=== PATIENT | female | born 1960 | race Caucasian/White ===

== ENCOUNTER 2020-06-19 11:10 | Emergency (ER) | payer MEDICAID, SELFPAY ==
[2020-06-19 11:30] VITALS: BP 156/89; PULSE 87; RESP 16; TEMP 36.8; O2SAT 97; BMI 31.3
--- NOTE | 2020-06-19 11:41 | HMH.EDUTC ---
[facility] Disposition Clinical Impression: UTI (urinary tract infection) Qualifiers: Urinary tract infection type: site unspecified Hematuria presence: with hematuria Qualified Code(s): N39.0 - Urinary tract infection, site not specified Disposition: Home, Self-Care Condition on Discharge: Good Instructions: Urinary Tract Infection, DI for Urinary Tract Infection (UTI) Additional Instructions: Drink plenty of fluids. Take tylenol for pain or fever. Return if you begin to have difficulty breathing. Follow up with your regular doctor. GO TO THE ER FOR ANY WORSENING SYMPTOMS The pyridium will make your urine turn orange, this is an expected side effect. It will stain your clothes if it comes into contact with them. Prescriptions: Nitrofurantoin Monohyd/M-Cryst [Macrobid 100 mg Capsule] 100 mg PO BID 5 Days #10 cap Transmission Status: Received by [id number] Phenazopyridine HCl [Pyridium 200mg Tablet] 200 pow PO TID #6 tab Transmission Status: Received by [id number] Referrals: Kevin Mckee [Primary Care Provider] - Time of Disposition: 12:22 Medical Decision Making - Medical Records Medical records reviewed: No: I reviewed the patient's medical records. - Shashank Inquiry Pt receiving controlled substance: No Vital Signs: 06/19/20 11:30 06/19/20 12:28 Temperature 98.2 F 98.2 F Temperature Source Oral Pulse Rate 87 Pulse Rate [Right Brachial] 87 Respiratory Rate 16 16 Blood Pressure 156/89 H Blood Pressure [Right Arm] 156/89 H Blood Pressure Mean [Right Arm] 111 Blood Pressure Source [Right Arm] Automatic Cuff Blood Pressure Position [Right Arm] Sitting 02 Sat by Pulse Oximetry 97 Oxygen Delivery Method Room Air - Lab Data Lab results reviewed: Yes: I reviewed the patient's lab results. Lab Results 06/19/20 11:13: Urine Color Yellow, Urine Appearance Clear, Urine pH 5.5, Ur Specific [place] 1.025, Urine Protein 2+, Urine Glucose (UA) Negative, Urine Ketones Negative, Urine Blood Trace, Urine Nitrate Negative, Urine Bilirubin Negative, Urine Urobilinogen 0.2, Ur Leukocyte Esterase Negative Orders (Tests/Meds): ORDERS Category Date Time Status Urine Culture Stat Micro 06/19/20 12:40 Results [facility] HPI - General Stated complaint: possible UTI Time Seen by Provider: 06/19/20 11:41 - History of Present Illness Provider Complaint: She states that she has been having burning while urinating for the past 3 days. She believes that she has a uti. She denies any low back pain. - Related Data Previous Rx's Medication Instructions Recorded Nitrofurantoin Monohyd/M-Cryst 100 mg PO BID 5 Days #10 cap 06/19/20 [Macrobid 100 mg Capsule] Phenazopyridine HCl [Pyridium 200 pow PO TID #6 tab 06/19/20 200mg Tablet] Allergies Allergy/AdvReac Type Severity Reaction Status Date / Time Penicillins Allergy Verified 06/19/20 11:53 Sulfa (Sulfonamide Allergy Verified 06/19/20 11:53 Antibiotics) [facility] History - Hepatitis A Screen Attestation statement:: This patient has been screened for Hepatitis A risk factors. I have reviewed the patient's past medical history: Yes ROS Obtained: Yes All systems reviewed & no additional complaints - Constitutional Constitutional: Denies chills, Denies fever(s) - Genitourinary Female Genitourinary: Reports as per HPI - Musculoskeletal Musculoskeletal: Reports as per HPI - Integumentary/Breasts Skin/Breast: Denies redness, Denies rash, Denies wounds Physical Exam - General General appearance: alert, in no apparent distress - Head Head exam: atraumatic, normocephalic, normal inspection - Eye Eye exam: Present: normal appearance, PERRL, EOMI - ENT ENT exam: Present: normal exam, normal oropharynx, mucous membranes moist, TM's normal bilaterally, normal external ear exam - Neck Neck exam: Present: normal inspection, full ROM, trachea midline. Absent: meningismus, ly
[2020-06-19 12:22] LABS: Apearance,Urine Clear (Clear); Color,Urine Yellow (Yellow); PH,Urine 5.5 (5.0-8.5); Specific Gravity, Urine 1.025 (1.005-1.030)
[2020-06-19 12:23] LABS: Bilirubin,Urine Negative (Negative); Blood, Urine Trace (Negative); Glucose,Urine (UA) Negative (Negative); Ketones,Urine Negative (Negative); Protein,Urine 2+ (Negative); UTC Leukocyte Esterase,Urine Negative (Negative); UTC Nitrate,Urine Negative (Negative); Urobilinogen,Urine 0.2 EU/dl (0.2)
[2020-06-19 12:28] VITALS: BP 156/89; PULSE 87; RESP 16; TEMP 36.8; O2SAT 97
== END 2020-06-19 12:31 | disposition home or self-care (01) ==
PROVIDERS: Emergency Provider Nurse Practitioner Family; PCP Pediatrics
DX: N39.0 Urinary tract infection, site not specified (principal)
CPT/HCPCS: 81003; 87086; 99202; G0463

== ENCOUNTER 2020-11-03 12:21 | Observation (INO) | payer MEDICAID, SELFPAY ==
[2020-11-03] VITALS (11 sets, daily range): BP systolic 108–166; BP diastolic 70–92; PULSE 79–108; RESP 17–20; TEMP 36.6–36.8; O2SAT 94–97; BMI 41.3; BMI 37.4
--- NOTE | 2020-11-03 12:37 | CT_ITS ---
PROCEDURE: CT HEAD/BRAIN WO CON CLINICAL INDICATION: fall with headstrike, on plavix Head injury with headache/pain, contusion, abrasion or hematoma COMPARISON: No exams were available for comparison TECHNIQUE: Axial images obtained. All CT scans at the facility use one or more dose reduction, viz: automated exposure control, ma/kV adjustment per patient size (including targeted exams where dose is matched to indication, i.e. head), or iterative reconstruction technique. FINDINGS: No midline shift, mass effect, intracranial hemorrhage, hydrocephalus, or extra-axial fluid collection is evident. There are encephalomalacia changes in the left frontal lobe, left posterior cerebellar region, and anterior right cerebellar region. Prominent soft tissue swelling is present in the left frontal area consistent with hematoma in the supraorbital region.. The calvarium has an unremarkable appearance. Minimal amount fluid noted in the right mastoid sinus. Mild mucosal thickening of the maxillary and ethmoid sinuses. IMPRESSION: 1. No acute intracranial findings. 2. Encephalomalacia changes in the left frontal lobe and bilateral cerebellar region 3. Left frontal scalp hematoma Dictated by: Anish Candelario MD 11/03/2020 13:10 Anish Candelario MD in [place] 11/03/2020 13:10
--- NOTE | 2020-11-03 12:38 | XR_ITS ---
PROCEDURE: XR KNEE RT 2V CLINICAL INDICATION: fall Pain COMPARISON: No exams were available for comparison FINDINGS: There are minimal osteoarthritic changes of the medial and lateral compartment. No acute fracture or dislocation. Skin defect is present in the pre patellar region IMPRESSION: No acute fracture.. Dictated by: Anish Candelario MD 11/03/2020 13:29 Anish Candelario MD in [place] 11/03/2020 13:29
--- NOTE | 2020-11-03 12:38 | XR_ITS ---
PROCEDURE: XR SHOULDER LT MIN 2V CLINICAL INDICATION: fall Pain COMPARISON: No exams were available for comparison FINDINGS: There is a comminuted fracture involving the neck and proximal shaft of the humerus. There is 1 cm medial displacement of the main distal fracture fragment. There is an avulsion fracture at the greater tuberosity region slightly displaced. The humeral head appears located. The AC joint has an unremarkable appearance. IMPRESSION: Comminuted and displaced fracture of the proximal humerus at the humeral neck and extending into the proximal shaft Dictated by: Anish Candelario MD 11/03/2020 13:28 Anish Candelario MD in [place] 11/03/2020 13:28
--- NOTE | 2020-11-03 12:38 | XR_ITS ---
PROCEDURE: XR ELBOW LT 2V CLINICAL INDICATION: fall Pain COMPARISON: No exams were available for comparison FINDINGS: The exam is limited as the elbow is not able to be extended secondary to patient's severe comminuted proximal humerus fracture. On the AP view there is a lucency along the coronoid process which could be due to nondisplaced fracture but could also be old. Follow-up study suggested when patient is able to extend the elbow. IMPRESSION: Very limited study. Possible small avulsion fracture the coronoid process. Follow-up suggested Dictated by: Anish Candelario MD 11/03/2020 13:33 Anish Candelario MD in [place] 11/03/2020 13:33
--- NOTE | 2020-11-03 12:45 | HMH.EDFALL ---
ED Disposition Clinical Impression: Laceration of lower extremity, Left humeral fracture Disposition: Admitted As Inpatient Condition on Discharge: Good - Critical Care Critical Care Time: No Attestation: On , the high probability of a clinically significant, sudden or life threatening deterioration of the following system(s) required my full and direct attention, intervention and personal management. The time I documented below is in addition to time spent performing reported procedures but includes the following listed in this critical care notation. Medical Decision Making - Medical Records MR Comment: Muted and displaced fracture of the rectum left humerus extending from the humerus neck to the upper shaft of the humerus. He was given pain medication. - Shashank Inquiry Pt receiving controlled substance: No Shashank was queried for this patient: No (urgent need for pain. fractured arm) Vital Signs: 11/03/20 12:30 11/03/20 13:19 11/03/20 13:30 Temperature 98.3 F Temperature Source Oral Pulse Rate 107 H 106 H Pulse Rate [Right] 103 H Respiratory Rate 20 Blood Pressure Blood Pressure [Right Arm] 157/85 H Blood Pressure Mean Blood Pressure Mean [Right Arm] 109 Blood Pressure Source [Right Arm] Automatic Cuff Blood Pressure Position [Right Arm] Sitting 02 Sat by Pulse Oximetry 96 95 97 Oxygen Delivery Method Room Air 11/03/20 13:45 11/03/20 14:00 11/03/20 14:23 Temperature Temperature Source Pulse Rate 105 H 102 H 95 H Pulse Rate [Right] Respiratory Rate Blood Pressure Blood Pressure [Right Arm] Blood Pressure Mean Blood Pressure Mean [Right Arm] Blood Pressure Source [Right Arm] Blood Pressure Position [Right Arm] 02 Sat by Pulse Oximetry 94 L 96 94 L Oxygen Delivery Method 11/03/20 14:26 11/03/20 16:27 11/03/20 17:03 Temperature 97.8 F Temperature Source Oral Pulse Rate 97 H 94 H 99 H Pulse Rate [Right] Respiratory Rate 20 20 Blood Pressure 135/78 166/79 H 108/70 L Blood Pressure [Right Arm] Blood Pressure Mean 87 Blood Pressure Mean [Right Arm] Blood Pressure Source [Right Arm] Blood Pressure Position [Right Arm] 02 Sat by Pulse Oximetry 95 95 Oxygen Delivery Method Room Air Room Air 11/03/20 17:21 Temperature 97.9 F Temperature Source Oral Pulse Rate Pulse Rate [Right] 79 Respiratory Rate 17 Blood Pressure Blood Pressure [Right Arm] 114/92 H Blood Pressure Mean Blood Pressure Mean [Right Arm] 99 Blood Pressure Source [Right Arm] Automatic Cuff Blood Pressure Position [Right Arm] Supine 02 Sat by Pulse Oximetry 95 Oxygen Delivery Method Room Air - Lab Data Lab Results 11/03/20 12:52: WBC 9.5, RBC 4.23, Hgb 12.3, Hct 36.7 L, MCV 86.8, MCH 29.1, MCHC 33.5, RDW 13.7, Plt Count 223, MPV 8.7, Neut % (Auto) 78.6, Lymph % (Auto) 11.9, [place] % (Auto) 5.9, Eos % (Auto) 2.8, Baso % (Auto) 0.7, Neut # (Auto) 7.5, Lymph # (Auto) 1.1, [place] # (Auto) 0.6, Eos # (Auto) 0.3, Baso # (Auto) 0.1 11/03/20 12:52: Sodium 137, Potassium 5.1, Chloride 106, Carbon Dioxide 22, Anion Gap 14.1, BUN 25 H, Creatinine 0.80, Estimated Creat Clear 57, Estimated GFR 73, Est GFR ( Amer) 88, Glucose 237 H, Calcium 8.3 L, Total Bilirubin 0.5, AST 47 H, ALT 50, Alkaline Phosphatase 103, Total Protein 7.0, Albumin 3.8, Globulin 3.2, Albumin/Globulin Ratio 1.2 11/03/20 16:00: SARS-CoV-2 (PCR) Not detected, Influenza A Untype (PCR) Not detected, Influenza Type B (PCR) Not detected Result diagrams: 11/04/20 08:28 11/04/20 08:28 Orders (Tests/Meds): ED MEDICATIONS Discontinued Medications Generic Name Dose Route Start Last Admin Trade Name Freq PRN Reason Stop Dose Admin Hydrocodone Bitart/Acetaminophen 1 tab 11/03/20 15:54 11/03/20 15:55 Apap/Hydrocodone 325mg/7.5mg Tab PO 11/03/20 15:55 1 tab ONCE ONE Administration Amitriptyline HCl 50 mg 11/03/20 21:00 11/03/20 20:10 Amitriptyline 50mg Tablet P
--- NOTE | 2020-11-03 12:56 | PC.NURSE ---
Pt to CT & XR via wheelchair at this time.
--- NOTE | 2020-11-03 13:30 | PC.NURSE ---
at bedside suturing right knee.
--- NOTE | 2020-11-03 14:16 | CT_ITS ---
PROCEDURE: CT SHOULDER LT WO CON CLINICAL HISTORY: injury Fracture evaluation COMPARISON: No exams were available for comparison TECHNIQUE: Axial images obtained with sagittal and coronal reformats. All CT scans at the facility use one or more dose reduction, viz: automated exposure control, ma/kV adjustment per patient size (including targeted exams where dose is matched to indication, i.e. head), or iterative reconstruction technique. FINDINGS: The humeral head is located. There is comminuted fracture involving the proximal left humerus at the humeral neck with extension into the proximal to mid shaft of the left proximal humerus. There is avulsion the inferior aspect of the greater tuberosity. There is distraction of the main fracture fragments by approximately 16 mm with anterior displacement of the distal fracture fragment by 1 cm. No other significant anomalies are evident. The scapula and glenoid fossa has an unremarkable appearance. IMPRESSION: Comminuted and displaced left proximal humeral fracture beginning at the humeral neck and extending into the proximal and midshaft of the humerus Dictated by: Anish Candelario MD 11/03/2020 15:05 Anish Candelario MD in [place] 11/03/2020 15:05
[2020-11-03 14:30] LABS: Alanine Aminotransferase 50 U/L (12-78); Albumin Level 3.8 g/dl (3.5-5.0); Albumin/Globulin Ratio 1.2 (1.1-1.8); Alkaline Phosphatase 103 U/L (38-126); Anion Gap 14.1 mEq/L (5-15); Aspartate Amino Transferase 47 U/L (14-36); Bilirubin,Total 0.5 mg/dl (0.2-1.3); Blood Urea Nitrogen 25 mg/dl (7-17); Calcium 8.3 mg/dl (8.4-10.2); Carbon Dioxide 22 mmol/L (22.0-30.0); Chloride 106 mmol/L (98-107); Creatinine Clearance Estimated 57 mL/min (50-200); Estimated Glomerular Filt Rate 73 ml/min (>60); GFR (African American) 88 ML/MIN (>60); Globulin 3.2 g/dL (1.3-3.2); Glucose 237 mg/dl (74-100); Potassium 5.1 mmoL/L (3.5-5.1); Sodium 137 mmol/L (136-145)
--- NOTE | 2020-11-03 14:35 | PC.NURSE ---
Knee immobilizer applied to right, shoulder immobilizer applied to left.
[2020-11-03 14:48] LABS: Basophils # 0.1 K/mm3 (0-0.2); Basophils % 0.7 % (0.1-2.0); Eosinophils # 0.3 K/mm3 (0.0-0.4); Eosinophils % 2.8 % (0.1-12.0); Hematocrit 36.7 % (37.0-47.0); Hemoglobin 12.3 g/dL (12.2-16.2); Lymphocytes # 1.1 K/mm3 (0.7-4.5); Lymphocytes % 11.9 % (10-50); Mean Corpuscular HGB Conc 33.5 g/dL (31.8-35.4); Mean Corpuscular Hemoglobin 29.1 pg (27.0-31.2); Mean Corpuscular Volume 86.8 fl (81-99); Mean Platelet Volume 8.7 fl (7.4-10.4); Monocytes # 0.6 K/mm3 (0.1-1.0); Monocytes % 5.9 % (1.7-9.3); Neutrophils # 7.5 K/mm3 (1.8-7.8); Neutrophils % 78.6 % (37.0-80.0); Platelet Count 223 K/mm3 (142-424); Red Blood Count 4.23 M/mm3 (4.20-5.40); Red Cell Distribution Width 13.7 % (11.5-17.5); White Blood Count 9.5 K/mm3 (4.8-10.8)
--- NOTE | 2020-11-03 15:23 | PC.NURSE ---
waiting direct support professional caregiver back from Dr. Wharton's office
[2020-11-03 16:12] LABS: Coronavirus 19, PCR Not Detected (NotDetected); Influenza A, PCR Not Detected (NotDetected); Influenza B, PCR Not Detected (NotDetected)
--- NOTE | 2020-11-03 16:12 | PC.NURSE ---
per Dr. Rosales okay to admit pt to him, Dr. Wharton is going to consult on pt with possible surgery tomorrow. per IrmaRN
--- NOTE | 2020-11-03 16:14 | PC.NURSE ---
notified house carpenter of admission
--- NOTE | 2020-11-03 17:26 | HMH.HP ---
*Admission Date: 11/03/20 *Chief complaint: fall with left arm pain and right lower leg laceration *History of present illness: Ms. Elizalde is a 60-year-old female with a history of hypertension, hyperlipidemia, CAD, diabetes, COPD, and history of CVA with some right foot weakness who fell at home and sustained a laceration to the front of her right knee, hit her head on the left side, and hit her left shoulder and arm. She had severe pain in the arm and was brought to the emergency room for further evaluation and treatment. She received 13 stitches to the laceration on her knee and did have a left humerus fracture. Her left arm was placed in a sling and she was admitted with an orthopedic consult. She did not lose consciousness and states she does have a mild headache at this time but denies any dizziness. [facility] History I have reviewed the patient's past medical history: Yes Medical History: Reports:: Atherosclerotic Heart Disease, Chronic Obstructive Pulmonary Disease (COPD), Coronary Artery Disease, Cerebrovascular Accident, Diabetes Mellitus Type 2, Hyperlipidemia, Hypertension, Myocardial Infarction *Have you ever received a pneumonia vaccine?: No *Have you received a flu vaccine this season?: No Other Surgeries: Yes: Hysterectomy-Total, Other (back surgery) - *Social History Smoking Status: Current every day smoker Tobacco Type: cigarettes # Packs/Day (cigarettes): 1 Alcohol Intake: former *Occupational Status:: other *Travel in the last 8 weeks: None Family Hx:: Cancer, Coronary Artery Disease, Diabetes, Heart Attack, Hyperlipidemia, Hypertension, Stroke Review of Systems - Constitutional Denies body ache(s), Denies chills, Denies fever(s) - Eyes Denies blurry vision, Denies double vision - ENT Denies nasal congestion, Denies sore throat - *Cardiovascular Denies chest pain, Denies shortness of breath - *Respiratory Denies chest congestion, Denies cough - *Gastrointestinal Denies abdominal pain, Denies loose stools, Denies nausea, Denies vomiting - *Genitourinary Denies difficulty urinating, Denies painful urination - *Musculoskeletal Reports joint pain (left arm, right knee), Reports back pain - *Neurologic Reports headache(s), Denies dizziness, Denies weakness Meds Home Medications Medication Instructions Recorded Confirmed Type Unobtainable 11/03/20 11/03/20 History Allergies Allergy/AdvReac Type Severity Reaction Status Date / Time Penicillins Allergy Verified 06/19/20 11:53 Sulfa (Sulfonamide Allergy Verified 06/19/20 11:53 Antibiotics) Exam Vital signs and Labs for Last 24 Hours: Temp Pulse Resp BP Pulse Ox 97.9 F 79 17 114/92 H 95 11/03/20 17:21 11/03/20 17:21 11/03/20 17:21 11/03/20 17:21 11/03/20 17:21 Laboratory Results - last 24 hr 11/03/20 12:52: WBC 9.5, RBC 4.23, Hgb 12.3, Hct 36.7 L, MCV 86.8, MCH 29.1, MCHC 33.5, RDW 13.7, Plt Count 223, MPV 8.7, Neut % (Auto) 78.6, Lymph % (Auto) 11.9, [place] % (Auto) 5.9, Eos % (Auto) 2.8, Baso % (Auto) 0.7, Neut # (Auto) 7.5, Lymph # (Auto) 1.1, [place] # (Auto) 0.6, Eos # (Auto) 0.3, Baso # (Auto) 0.1 11/03/20 12:52: Sodium 137, Potassium 5.1, Chloride 106, Carbon Dioxide 22, Anion Gap 14.1, BUN 25 H, Creatinine 0.80, Estimated Creat Clear 57, Estimated GFR 73, Est GFR ( Amer) 88, Glucose 237 H, Calcium 8.3 L, Total Bilirubin 0.5, AST 47 H, ALT 50, Alkaline Phosphatase 103, Total Protein 7.0, Albumin 3.8, Globulin 3.2, Albumin/Globulin Ratio 1.2 11/03/20 16:00: SARS-CoV-2 (PCR) Not detected, Influenza A Untype (PCR) Not detected, Influenza Type B (PCR) Not detected I & O for Last 24 hours: Intake & Output 11/01/20 11/02/20 11/03/20 11/04/20 11:59 11:59 11:59 11:59 Weight 239 lb 3 oz - Constitutional no acute distress - *Routine HEENT Exam Head: Present: normocephalic Eye: Present: EOMI, PERRL ENT: Present: mucous membranes moist - *Routine Neck Exam Present: supple. Absent: lymph
--- NOTE | 2020-11-03 18:04 | HMH.ORTHOCON ---
*Admission Date: 11/03/20 *Reason for consult:: Proximal humerus fracture, left *History of present illness: Ms. Elizalde is a 60-year-old [id number] female with a history of hypertension, hyperlipidemia, CAD, diabetes, COPD, and history of CVA x 2 with some residual right lower extremity weakness, tobacco abuse and history of MRSA is admitted to hospital via emergency department. She states that she fell at home and sustained a laceration to the front of her right knee, hit her head on the left side, and hit her left shoulder and arm. She had severe pain in the arm and was brought to the emergency room for further evaluation and treatment. Evaluation in the ER confirmed a comminuted proximal humerus fracture on the left side-the arm is placed in a sling and swath mobilization. The laceration was sutured in the ER and right lower extremity placed in a knee immobilizer. No history of any distal tingling or numbness. She did not lose consciousness and states she does have a mild headache at this time but denies any dizziness. According to the ER physician, patient is being admitted to hospital for social reasons. Patient states that she lives with her family and normally walks without any walking aids. She reports having frequent falls at home. She states she had CVA about a year ago and was in coma for some time. [facility] History I have reviewed the patient's past medical history: Yes Medical History: Reports:: Atherosclerotic Heart Disease, Congestive Heart Failure, Chronic Obstructive Pulmonary Disease (COPD), Coronary Artery Disease, Cerebrovascular Accident, Diabetes Mellitus Type 2, Hyperlipidemia, Hypertension, MRSA, Myocardial Infarction Denies:: Cancer, Diabetes Mellitus Type 1 *Have you ever received a pneumonia vaccine?: Yes *Have you received a flu vaccine this season?: No Other Surgeries: Yes: Hysterectomy-Total, Other (back surgery) - *Social History Smoking Status: Current every day smoker Tobacco Type: cigarettes # Packs/Day (cigarettes): 1 Alcohol Intake: never *Occupational Status:: disabled *Travel in the last 8 weeks: None Family Hx:: Cancer, Coronary Artery Disease, Diabetes, Heart Attack, Hyperlipidemia, Hypertension, Stroke Review of Systems - Review of Systems Review of systems:: pertinent systems reviewed and negative unless documented below - Constitutional Denies chills, Denies fever(s) - Eyes Denies change in vision - ENT Denies abnormal hearing - *Cardiovascular Denies chest pain, Denies shortness of breath - *Respiratory Denies chest congestion, Denies cough - *Gastrointestinal Denies abdominal pain - *Musculoskeletal Reports abnormal walking, Reports joint pain, Reports limited joint movement - *Neurologic Reports headache(s), Denies tingling/numbness/burning sensations, Denies dizziness, Denies weakness - Endocrine Denies cold intolerance, Denies heat intolerance - Hematologic/Lymphatic Reports easy bruising Meds Home Medications Medication Instructions Recorded Confirmed Type Unobtainable 11/03/20 11/03/20 History Allergies Allergy/AdvReac Type Severity Reaction Status Date / Time Penicillins Allergy Verified 06/19/20 11:53 Sulfa (Sulfonamide Allergy Verified 06/19/20 11:53 Antibiotics) Exam Vital signs and Labs for Last 24 Hours: Temp Pulse Resp BP Pulse Ox 97.9 F 79 17 114/92 H 95 11/03/20 17:21 11/03/20 17:21 11/03/20 17:21 11/03/20 17:21 11/03/20 17:21 Laboratory Results - last 24 hr 11/03/20 12:52: WBC 9.5, RBC 4.23, Hgb 12.3, Hct 36.7 L, MCV 86.8, MCH 29.1, MCHC 33.5, RDW 13.7, Plt Count 223, MPV 8.7, Neut % (Auto) 78.6, Lymph % (Auto) 11.9, [place] % (Auto) 5.9, Eos % (Auto) 2.8, Baso % (Auto) 0.7, Neut # (Auto) 7.5, Lymph # (Auto) 1.1, [place] # (Auto) 0.6, Eos # (Auto) 0.3, Baso # (Auto) 0.1 11/03/20 12:52: Sodium 137, Potassium 5.1, Chloride 106, Carbon Dioxide 22, Anion Gap 14.1, BUN 25 H, Creatinine 0.80, Estimated Creat Cl
--- NOTE | 2020-11-03 18:50 | P.PN_ITS ---
Internal Medicine - PN: Subj *Date: 11/03/20 *Time: 18:50 Interval history: See H&P and addendum. Exam Vital signs and Labs for Last 24 Hours: Temp Pulse Resp BP Pulse Ox 97.9 F 79 17 114/92 H 95 11/03/20 17:21 11/03/20 17:21 11/03/20 17:21 11/03/20 17:21 11/03/20 17:21 Laboratory Results - last 24 hr 11/03/20 12:52: WBC 9.5, RBC 4.23, Hgb 12.3, Hct 36.7 L, MCV 86.8, MCH 29.1, MCHC 33.5, RDW 13.7, Plt Count 223, MPV 8.7, Neut % (Auto) 78.6, Lymph % (Auto) 11.9, [place] % (Auto) 5.9, Eos % (Auto) 2.8, Baso % (Auto) 0.7, Neut # (Auto) 7.5, Lymph # (Auto) 1.1, [place] # (Auto) 0.6, Eos # (Auto) 0.3, Baso # (Auto) 0.1 11/03/20 12:52: Sodium 137, Potassium 5.1, Chloride 106, Carbon Dioxide 22, Anion Gap 14.1, BUN 25 H, Creatinine 0.80, Estimated Creat Clear 57, Estimated GFR 73, Est GFR ( Amer) 88, Glucose 237 H, Calcium 8.3 L, Total Bilirubin 0.5, AST 47 H, ALT 50, Alkaline Phosphatase 103, Total Protein 7.0, Albumin 3.8, Globulin 3.2, Albumin/Globulin Ratio 1.2 11/03/20 16:00: SARS-CoV-2 (PCR) Not detected, Influenza A Untype (PCR) Not detected, Influenza Type B (PCR) Not detected I & O for Last 24 hours: Intake & Output 11/01/20 11/02/20 11/03/20 11/04/20 11:59 11:59 11:59 11:59 Output Total 50 / 50 Balance -50 / -50 Weight 239 lb 3 oz Assessment and Plan (1) Left humeral fracture Status: Acute Category: Medical Code(s): S42.302A - Unspecified fracture of shaft of humerus, left arm, initial encounter for closed fracture (2) Laceration of lower extremity Status: Acute Category: Medical Code(s): S81.819A - Laceration without foreign body, unspecified lower leg, initial encounter (3) Contusion of forehead Status: Acute Category: Medical Code(s): S00.83XA - Contusion of other part of head, initial encounter (4) Contusion of left knee Status: Acute Category: Medical Code(s): S80.02XA - Contusion of left knee, initial encounter (5) Type 2 diabetes mellitus Status: Chronic Category: Medical Code(s): E11.9 - Type 2 diabetes mellitus without complications (6) Hypertension Status: Chronic Category: Medical Code(s): I10 - Essential (primary) hypertension (7) Hyperlipidemia Status: Chronic Category: Medical Code(s): E78.5 - Hyperlipidemia, unspecified (8) History of CVA (cerebrovascular accident) Status: Chronic Category: Medical Code(s): Z86.73 - Personal history of transient ischemic attack (TIA), and cerebral infarction without residual deficits (9) History of [place] (myocardial infarction) Status: Chronic Category: Medical Code(s): I25.2 - Old myocardial infarction (10) COPD (chronic obstructive pulmonary disease) Status: Chronic Category: Medical Code(s): J44.9 - Chronic obstructive pulmonary disease, unspecified (11) Depression Status: Acute Category: Medical Code(s): F32.9 - Major depressive disorder, single episode, unspecified (12) Restless legs syndrome Status: Acute Category: Medical Code(s): G25.81 - Restless legs syndrome
--- NOTE | 2020-11-03 18:50 | PC.NURSE ---
Pt is alert and oriented and able to make needs known. RR even and unlabored. This RN did request meds from ED and diet order. Diabetic diet was placed. Also made YAMILET Mckeon aware orders were needed. Dr. Rosales is here now and rounding on pt. Dr. Wharton has also already came to floor and rounded- see his note. This RN did ask for med list, pt is unsure of what meds she takes and is going to call with list. This RN has also informed pt of need for home meds. Verbalizes understanding. CB in reach. Immobilizer is in place to R leg and L shoulder. Pt did void small amt. States her last bm was early this am. Bed safety is on for safety of pt, educated pt not to attempt to get out of bed independently.
[2020-11-04 03:43] VITALS: BP 104/51; PULSE 105; RESP 20; TEMP 36.6; O2SAT 96
--- NOTE | 2020-11-04 03:59 | PC.NURSE ---
A&O x4, pt has not slept this shift. Has c/o pain in leg, morphine given per mar with desired effects. Immobilizer on right knee, sutures in place. Sling on left arm. Lungs CTA, pt requested to be on 2L NC because she felt SOA. bowel sounds x4, abd soft and nontender. IV patent, SL. VSS, call light in reach, no concerns at this time.
[2020-11-04 04:57] VITALS: BMI 38.0
[2020-11-04 07:48] VITALS: BP 126/96; PULSE 106; RESP 18; TEMP 36.7; O2SAT 94
--- NOTE | 2020-11-04 08:13 | P.CONPHA_ITS ---
[facility] Pharmacy VTE Monitoring - Patient Demographics Admission date: 11/04/20 Report Date: 11/04/20 Time: 08:13 Allergies/Adverse Reactions: Patient Allergies Penicillins Allergy (Verified 06/19/20 11:53) Sulfa (Sulfonamide Antibiotics) Allergy (Verified 06/19/20 11:53) Height: 1.7 m Weight: 109.996 kg Patient Problems: Current Active Problems Laceration of lower extremity (Acute) Left humeral fracture (Acute) Hypertension (Chronic) Hyperlipidemia (Chronic) Type 2 diabetes mellitus (Chronic) History of CVA (cerebrovascular accident) (Chronic) History of [place] (myocardial infarction) (Chronic) COPD (chronic obstructive pulmonary disease) (Chronic) Contusion of forehead (Acute) Contusion of left knee (Acute) Depression (Acute) Restless legs syndrome (Acute) - VTE Risk Labs: VTE Related Lab Results Hgb 12.3 g/dL (12.2-16.2) 11/03/20 12:52 Hct 36.7 % (37.0-47.0) L 11/03/20 12:52 Plt Count 223 K/mm3 (142-424) 11/03/20 12:52 BUN 25 mg/dl (7-17) H 11/03/20 12:52 Creatinine 0.80 mg/dl (0.52-1.04) 11/03/20 12:52 Estimated Creat Clear 57 mL/min (50-200) 11/03/20 12:52 Clinical Trial Participant: No - Prophylaxis VTE Prophylaxis Ordered?: Yes Types of VTE Prophylaxis: TEDS Knee High
--- NOTE | 2020-11-04 08:26 | HMH.PHAINT ---
MEDICATION RECONCILIATION COMPLETED ON PATIENT USING EXTERNAL PHARMACY FILL HX
--- NOTE | 2020-11-04 08:41 | HMH.ACPN2 ---
Internal Medicine - PN: Subj *Date: 11/04/20 *Time: 08:41 Interval history: Patient states she had a rough night. She said she had severe pain in her arm and the nursing staff would not bring her pain medication. Dr. Wharton did see the patient in consultation and did not feel she would need surgery due to her significant medical/cardiac comorbidities. He recommended continuation of conservative management with a sling and swath immobilization. He felt she can mobilize weightbearing as tolerated on the right lower extremity has her laceration had already been sutured. He wanted to follow-up with her in 1 week. She is also requesting a nicotine patch today. Exam Vital signs and Labs for Last 24 Hours: Temp Pulse Resp BP Pulse Ox 98.1 F 106 H 18 126/96 H 94 L 11/04/20 07:48 11/04/20 07:48 11/04/20 07:48 11/04/20 07:48 11/04/20 07:48 Laboratory Results - last 24 hr 11/03/20 12:52: WBC 9.5, RBC 4.23, Hgb 12.3, Hct 36.7 L, MCV 86.8, MCH 29.1, MCHC 33.5, RDW 13.7, Plt Count 223, MPV 8.7, Neut % (Auto) 78.6, Lymph % (Auto) 11.9, Mckinley % (Auto) 5.9, Eos % (Auto) 2.8, Baso % (Auto) 0.7, Neut # (Auto) 7.5, Lymph # (Auto) 1.1, Mckinley # (Auto) 0.6, Eos # (Auto) 0.3, Baso # (Auto) 0.1 11/03/20 12:52: Sodium 137, Potassium 5.1, Chloride 106, Carbon Dioxide 22, Anion Gap 14.1, BUN 25 H, Creatinine 0.80, Estimated Creat Clear 57, Estimated GFR 73, Est GFR ( Amer) 88, Glucose 237 H, Calcium 8.3 L, Total Bilirubin 0.5, AST 47 H, ALT 50, Alkaline Phosphatase 103, Total Protein 7.0, Albumin 3.8, Globulin 3.2, Albumin/Globulin Ratio 1.2 11/03/20 16:00: SARS-CoV-2 (PCR) Not detected, Influenza A Untype (PCR) Not detected, Influenza Type B (PCR) Not detected I & O for Last 24 hours: Intake & Output 11/01/20 11/02/20 11/03/20 11/04/20 11:59 11:59 11:59 11:59 Intake Total 0 / 0 Output Total 250 / 250 Balance -250 / -250 Weight 242 lb 8 oz - Constitutional no acute distress - *Routine Respiratory Exam Present: wheezes - *Routine Cardiovascular Exam Present: RRR - *Routine Abdominal Exam Present: soft, normoactive bowel sounds. Absent: tenderness - *Routine Extremities Exam Present: edema. Absent: cyanosis, clubbing Comments: Right leg in an immobilizer, left shoulder in a sling - *Routine Skin Exam Present: warm. Absent: rash - *Routine Neurological Exam Present: alert, oriented X3 Assessment and Plan (1) Left humeral fracture Status: Acute Category: Medical Code(s): S42.302A - Unspecified fracture of shaft of humerus, left arm, initial encounter for closed fracture (2) Laceration of lower extremity Status: Acute Category: Medical Code(s): S81.819A - Laceration without foreign body, unspecified lower leg, initial encounter (3) Contusion of forehead Status: Acute Category: Medical Code(s): S00.83XA - Contusion of other part of head, initial encounter (4) Contusion of left knee Status: Acute Category: Medical Code(s): S80.02XA - Contusion of left knee, initial encounter (5) Type 2 diabetes mellitus Status: Chronic Category: Medical Code(s): E11.9 - Type 2 diabetes mellitus without complications (6) Hypertension Status: Chronic Category: Medical Code(s): I10 - Essential (primary) hypertension (7) Hyperlipidemia Status: Chronic Category: Medical Code(s): E78.5 - Hyperlipidemia, unspecified (8) History of CVA (cerebrovascular accident) Status: Chronic Category: Medical Code(s): Z86.73 - Personal history of transient ischemic attack (TIA), and cerebral infarction without residual deficits (9) History of VA (myocardial infarction) Status: Chronic Category: Medical Code(s): I25.2 - Old myocardial infarction (10) COPD (chronic obstructive pulmonary disease) Status: Chronic Category: Medical Code(s): J44.9 - Chronic obstructive pulmonary disease, unspecified (11) Depression Status: Acute Category: Medical Code(s):
[2020-11-04 09:06] LABS: Basophils % 0.4 % (0.1-2.0); Eosinophils # 0.3 K/mm3 (0.0-0.4); Eosinophils % 3.2 % (0.1-12.0); Hematocrit 35.2 % (37.0-47.0); Hemoglobin 11.6 g/dL (12.2-16.2); Lymphocytes # 1.6 K/mm3 (0.7-4.5); Lymphocytes % 16.3 % (10-50); Mean Corpuscular HGB Conc 32.9 g/dL (31.8-35.4); Mean Corpuscular Volume 88.2 fl (81-99); Mean Platelet Volume 8.5 fl (7.4-10.4); Monocytes # 0.7 K/mm3 (0.1-1.0); Monocytes % 7.1 % (1.7-9.3); Neutrophils # 7.2 K/mm3 (1.8-7.8); Neutrophils % 72.9 % (37.0-80.0); Platelet Count 205 K/mm3 (142-424); Red Cell Distribution Width 13.9 % (11.5-17.5); White Blood Count 9.9 K/mm3 (4.8-10.8)
[2020-11-04 09:08] LABS: Chloride 104 mmol/L (98-107)
[2020-11-04 09:09] LABS: Potassium 4.7 mmoL/L (3.5-5.1); Sodium 133 mmol/L (136-145)
[2020-11-04 09:12] LABS: Anion Gap 12.7 mEq/L (5-15); Blood Urea Nitrogen 21 mg/dl (7-17); Calcium 8.2 mg/dl (8.4-10.2); Carbon Dioxide 21 mmol/L (22.0-30.0); Creatinine Clearance Estimated 103 mL/min (50-200); Estimated Glomerular Filt Rate 73 ml/min (>60); GFR (African American) 88 ML/MIN (>60); Glucose 204 mg/dl (74-100)
--- NOTE | 2020-11-04 10:13 | PC.NURSE ---
Addendum entered by Adam Hu RN 11/04/20 10:27: Rolling walker is needed, rather than a cane for ambulation r/t gait and mobility issues. Original Note: Pt will need a rolling walker and a bedside commode r/t gait and mobility issues and distance to restroom. Called dietary for diet to be brought up. Also, called for nausea med request. Pt is going to be d/cd.
--- NOTE | 2020-11-04 10:31 | SW/DCPLANNER ---
Addendum entered by Lakisha Mckee 11/04/20 11:37: Dunia with [employer] has confirmed that DME will be delivered to patients room today. Original Note: I spoke with this patient this morning regarding discharge plans: patients was present at time of my visit. Patient stated that her plan was to return home with her at this time. I discussed options of home health vs placement and patient has refused both services. Patient stated that she would rather follow up with her family MD (Dr Mckee) prior to starting any services. Patient did state that she will need a rolling walker/bedside commode at home and prefer this be ordered thru [facility]. I have faxed patient information/order to [facility] and I will follow up once reviewed. Patients stated that he felt that patient will be safe to discharge home and will have / supervision. Patient will discharge home later today.
--- NOTE | 2020-11-05 15:46 | HMH.DCSUM ---
General - General Admission date:: 11/03/20 Discharge date: 11/04/20 HPI HPI: Ms. Elizalde is a 60-year-old female with a history of hypertension, hyperlipidemia, CAD, diabetes, COPD, and history of CVA with some right foot weakness who fell at home and sustained a laceration to the front of her right knee, hit her head on the left side, and hit her left shoulder and arm. She had severe pain in the arm and was brought to the emergency room for further evaluation and treatment. She received 13 stitches to the laceration on her knee and did have a left humerus fracture. Her left arm was placed in a sling and she was admitted with an orthopedic consult. She did not lose consciousness and states she does have a mild headache at this time but denies any dizziness. Hospital Course Hospital Course: The patient was started on morphine for pain and Dr. Wharton was consulted due to humerus fracture. Dr. Wharton did see the patient in consultation and did not feel surgery would be a matta option due to her significant medical/cardiac comorbidities. He recommended continuation of conservative management along with a sling and swath immobilization. He also felt she could mobilize weightbearing as tolerated on the right lower extremity as her laceration had already been sutured. He wanted to follow-up with her in his office in a week. The patient was stable to be discharged home and will need home health follow-up. She will also need to follow-up with her primary care physician and will eventually need physical therapy. Dr. Rosales wrote her some pain medication. Objective Vital signs: Temp Pulse Resp BP Pulse Ox 98.1 F 106 H 18 126/96 H 94 L 11/04/20 07:48 11/04/20 07:48 11/04/20 07:48 11/04/20 07:48 11/04/20 07:48 Narrative: - Constitutional no acute distress - *Routine HEENT Exam Head: Present: normocephalic Eye: Present: EOMI, PERRL ENT: Present: mucous membranes moist - *Routine Neck Exam Present: supple. Absent: lymphadenopathy - *Routine Respiratory Exam Present: decreased breath sounds, CTA bilaterally - *Routine Cardiovascular Exam Present: RRR - *Routine Abdominal Exam Present: soft, normoactive bowel sounds. Absent: tenderness - *Routine Rectal Exam Rectal:: deferred - *Routine Genitalia Exam Genitalia:: deferred - *Routine Extremities Exam Present: edema (right knee). Absent: cyanosis, clubbing Comments: left arm tender from shoulder down to elbow, in a sling - *Routine Skin Exam Comments: right knee with 13 simple interrupted sutures, above left eye there is a hematoma that is tender - *Routine Neurological Exam Present: alert, oriented X3, CN II-XII intact DS: Diagnosis - Discharge Diagnosis (1) Left humeral fracture Status: Acute (2) Laceration of lower extremity Status: Acute (3) Contusion of forehead Status: Acute (4) Contusion of left knee Status: Acute (5) Type 2 diabetes mellitus Status: Chronic (6) Hypertension Status: Chronic (7) Hyperlipidemia Status: Chronic (8) History of CVA (cerebrovascular accident) Status: Chronic (9) History of IA (myocardial infarction) Status: Chronic (10) COPD (chronic obstructive pulmonary disease) Status: Chronic (11) Depression Status: Acute (12) Restless legs syndrome Status: Acute Discharge Plan - Patient Discharge Instructions ACTIVITY: Ambulate as tolerated DIET: low fat, low cholesterol Additional Instructions: f/u with pcp Patient Instructions: Depression and Chronic Illness, High Blood Pressure (Hypertension) (Alternative Therapy), DI for Chronic Obstructive Pulmonary Disease, DI for Humeral Fracture - Follow up Plan Follow up with: Kevin Mckee [Primary Care Provider] - 11/11/20 1:20 pm Unknown provider or service follow up:: 11/04/20 10:[address] Wharton wants follow-up. Disposition: Home Health Service Condition at dis
== END 2020-11-04 13:40 | disposition home health service (06) ==
LOC: ER 16:27 → 2ND 17:08
PROVIDERS: Admitting Provider Family Medicine; Emergency Provider Internal Medicine; PCP Pediatrics; Visit Provider Family Medicine
DX: S42.302A Unspecified fracture of shaft of humerus, left arm, initial encounter for closed fracture (principal); Z88.2 Allergy status to sulfonamides; Z88.0 Allergy status to penicillin; S81.011A Laceration without foreign body, right knee, initial encounter; I25.10 Atherosclerotic heart disease of native coronary artery without angina pectoris; I10 Essential (primary) hypertension; E78.5 Hyperlipidemia, unspecified; E11.9 Type 2 diabetes mellitus without complications; Z79.84 Long term (current) use of oral hypoglycemic drugs; G25.81 Restless legs syndrome; J44.9 Chronic obstructive pulmonary disease, unspecified; I69.398 Other sequelae of cerebral infarction; F17.210 Nicotine dependence, cigarettes, uncomplicated; S00.83XA Contusion of other part of head, initial encounter; I25.2 Old myocardial infarction; F32.9 Major depressive disorder, single episode, unspecified; F41.9 Anxiety disorder, unspecified; M79.602 Pain in left arm
CPT/HCPCS: 12004; 36415; 70450; 73030; 73070; 73200; 73560; 80048; 80053; 85025; 90715; 96365; 96372; 99284; 99291; G0378; J2405; U0003

== ENCOUNTER → 2020-11-16 14:27 | Outpatient (CLI) | payer MEDICAID, SELFPAY ==
--- NOTE | 2020-11-16 14:30 | XR_ITS ---
PROCEDURE: XR SHOULDER LT MIN 2V CLINICAL INDICATION: prox humerus fx extending to humeral shaft Follow-up fracture COMPARISON: CR XR SHOULDER LT MIN 2V from 11/03/2020 FINDINGS: Comminuted proximal left humeral fracture is present with a component at the humeral neck and an additional component at the proximal shaft of the humerus. There is anterior and medial displacement of the distal fracture fragment. No callus formation apparent. No evidence of shoulder dislocation IMPRESSION: Displaced comminuted proximal humeral fracture not significantly changed. Dictated by: Anish Candelario MD 11/16/2020 15:17 Anish Candelario MD in [place] 11/16/2020 15:17
== END ==
PROVIDERS: PCP Pediatrics; Visit Provider Orthopaedic Surgery
DX: S42.302A Unspecified fracture of shaft of humerus, left arm, initial encounter for closed fracture (principal)
CPT/HCPCS: 73030

== ENCOUNTER → 2020-11-30 12:27 | Outpatient (CLI) | payer MEDICAID, SELFPAY ==
--- NOTE | 2020-11-30 12:42 | XR_ITS ---
PROCEDURE: XR SHOULDER LT MIN 2V CLINICAL INDICATION: prox. humerus extending to humeral shaft follow-up fracture COMPARISON: CR XR SHOULDER LT MIN 2V from 11/03/2020 CR XR SHOULDER LT MIN 2V from 11/16/2020 FINDINGS: Comminuted proximal humeral fracture is noted involving the humeral neck and extending into the proximal humeral shaft. There is displacement of the distal fracture fragment medially by 17 mm. There may be some callus formation forming along the inferior aspect of the fracture site. IMPRESSION: Comminuted and displaced proximal humeral fracture as described above with questionable callus formation developing distally Dictated by: Anish Candelario MD 11/30/2020 14:20 Anish Candelario MD in [place] 11/30/2020 14:20
== END ==
PROVIDERS: PCP Pediatrics; Visit Provider Orthopaedic Surgery
DX: S42.302A Unspecified fracture of shaft of humerus, left arm, initial encounter for closed fracture (principal)
CPT/HCPCS: 73030

== ENCOUNTER 2020-12-14 11:25 | Emergency (ER) | payer MEDICAID, SELFPAY ==
[2020-12-14 11:45] VITALS: BP 127/55; PULSE 84; RESP 19; TEMP 36.7; O2SAT 96; BMI 36.6
[2020-12-14 12:03] VITALS: BMI 36.6
[2020-12-14 12:18] LABS: UTC Influenza A Antigen Negative (Negative)
[2020-12-14 12:19] LABS: UTC Influenza B Antigen Negative (Negative)
[2020-12-14 12:22] VITALS: BP 127/55; PULSE 84; RESP 19; TEMP 36.7; O2SAT 96
--- NOTE | 2020-12-14 12:51 | HMH.EDUTC ---
[facility] [place] Impression: Viral syndrome, Yeast infection Disposition: Home, Self-Care Condition on Discharge: Good Instructions: DI for Vaginal Yeast Infection, DI for Viral Syndrome Referrals: Kevin Mckee [Primary Care Provider] - Medical Decision Making - Medical Records Medical records reviewed: No: I reviewed the patient's medical records. - Shashank Inquiry Pt receiving controlled substance: No Vital Signs: 12/14/20 11:45 12/14/20 12:22 Temperature 98.1 F 98.1 F Temperature Source Oral Pulse Rate 84 Pulse Rate [Left Brachial] 84 Respiratory Rate 19 19 Blood Pressure 127/55 L Blood Pressure [Left Arm] 127/55 L Blood Pressure Mean [Left Arm] 79 Blood Pressure Source [Left Arm] Automatic Cuff Blood Pressure Position [Left Arm] Sitting 02 Sat by Pulse Oximetry 96 Oxygen Delivery Method Room Air - Lab Data Lab results reviewed: Yes: I reviewed the patient's lab results. Lab Results 12/14/20 12:00: Chlamy pneumoniae PCR Not detected, Adenovirus (PCR) Not detected, B. pertussis DNA (PCR) Not detected, Coronavirus OC43 (PCR) Not detected, Coronavirus HKU1 (PCR) Not detected, Coronavirus 229E (PCR) Not detected, SARS-CoV-2 (PCR) Not detected, Coronavirus NL63 (PCR) Not detected, Human Metapneumovir PCR Not detected, Influenza A (H1) PCR Not detected, Influ A (H1N1/09) PCR Not detected, Influenza A (H3) PCR Not detected, Influenza Type A (PCR) Not detected, Influenza Type B (PCR) Not detected, M. pneumoniae (PCR) Not detected, Parainfluenza 1 (PCR) Not detected, Parainfluenza 2 (PCR) Not detected, Parainfluenza 3 (PCR) Not detected, Parainfluenza 4 (PCR) Not detected, RSV (PCR) Not detected, Entero/Rhino (PCR) Not detected 12/14/20 12:04: Influenza Type A Ag Negative, Influenza Type B Ag Negative Orders (Tests/Meds): ORDERS Category Date Time Status Covid-19 Nasal PCR ([facility]) Routine Lab 12/14/20 12:00 Stop [place]q [facility] [place] - General Stated complaint: vomiting, Time Seen by Provider: 12/14/20 12:25 Mode of Arrival: Ambulatory Source of Information: Patient, Spouse Limitations: No Limitations Description of Symptoms (Recalled from Triage Doc. by RN): PATIENT C/O NAUSEA, VOMITING, BACK ACHE AND CHILLS SINCE THIS MORNING. RECENTLY HAD THE FLU HEENT Symptoms (Recalled from RN notes): No Resp Symptoms (Recalled from RN notes): No Skin Symptoms (Recalled from RN notes): No MS Symptoms (Recalled from RN notes): No Functional Status (Recalled from RN notes): WNL - History of Present Illness Provider Complaint: She states that since yesterday she has had nausea. She has vomited twice today. She denies that she has had diarrhea. She denies constipation. She denies abdominal pain, but she has had some cramping at times since her symptoms began. She has also been having weakness of her lower extremities. She has also been having itching of her groin area. She thinks that she has a yeast infection. - Related Data Home Medications Medication Instructions Recorded Confirmed Amitriptyline HCl 100 mg PO HS 11/04/20 11/30/20 Atorvastatin Calcium [Lipitor 40mg 40 mg PO HS 11/04/20 11/30/20 Tab] Clopidogrel Bisulfate [Clopidogrel 75 mg PO DAILY 11/04/20 11/30/20 75mg Tab] Gabapentin [Neurontin 800mg Tab] 800 mg PO TID 11/04/20 11/30/20 Glimepiride [Amaryl] 2 mg PO DAILY 11/04/20 11/30/20 Metformin HCl [Glucophage 500mg 500 mg PO BID 11/04/20 11/30/20 Tablet] Metoprolol Succinate [Metoprolol 25 mg PO DAILY 11/04/20 11/30/20 Succinate 25mg Tablet*] Naproxen [Naproxen 375mg Tab] 375 mg PO BIDP PRN 11/04/20 11/30/20 Ropinirole HCl 2 mg PO HS 11/04/20 11/30/20 Sertraline HCl 100 mg PO DAILY 11/04/20 11/30/20 lisinopriL [Lisinopril] 5 mg PO DAILY 11/04/20 11/30/20 Previous Rx's Medication Instructions Recorded Hydrocod/Acet 5/325 mg [[place] 1 tab PO QIDP PRN #20 tab 11/04/20 5/325mg tablet] Allergies Allergy/AdvReac Type Severity Reaction Sta
[2020-12-14 14:32] LABS: Adenovirus,PCR Not Detected (NotDetected); Bordetella Pertussis Not Detected (NotDetected); Chlamydophila Pneumoniae, PCR Not Detected (NotDetected); Coronavirus 19, PCR Not Detected (NotDetected); Coronavirus 229E Not Detected (NotDetected); Coronavirus NL63 Not Detected (NotDetected); Coronavirus OC43 Not Detected (NotDetected); Coronovirus HKU1,PCR Not Detected (NotDetected); Human Metapneumovirus Not Detected (NotDetected); Influenza A, PCR Not Detected (NotDetected); Influenza AH1, 2009 Not Detected (NotDetected); Influenza AH1, PCR Not Detected (NotDetected); Influenza AH3,PCR Not Detected (NotDetected); Influenza B, PCR Not Detected (NotDetected); Mycoplasma Pneumoniae, PCR Not Detected (NotDetected); Parainfluenza 1, PCR Not Detected (NotDetected); Parainfluenza 2, PCR Not Detected (NotDetected); Parainfluenza 3, PCR Not Detected (NotDetected); Parainfluenza 4, PCR Not Detected (NotDetected); Respiratory Syncytial Virus Not Detected (NotDetected); Rhinovirus/Enterovirus Not Detected (NotDetected)
== END 2020-12-14 13:09 | disposition home or self-care (01) ==
PROVIDERS: Emergency Provider Nurse Practitioner Family; PCP Pediatrics
DX: B34.9 Viral infection, unspecified (principal); Z20.822 Contact with and (suspected) exposure to COVID-19; I50.9 Heart failure, unspecified; J44.9 Chronic obstructive pulmonary disease, unspecified; E11.9 Type 2 diabetes mellitus without complications; I25.2 Old myocardial infarction; I10 Essential (primary) hypertension; E78.5 Hyperlipidemia, unspecified; F17.210 Nicotine dependence, cigarettes, uncomplicated; Z79.899 Other long term (current) drug therapy
CPT/HCPCS: 87581; 87633; 87798; 87804; 99202; G0463

== ENCOUNTER 2020-12-20 10:29 | Emergency (ER) | payer MEDICAID, SELFPAY ==
[2020-12-20 11:20] VITALS: BP 129/77; PULSE 83; RESP 16; TEMP 36.6; O2SAT 97; BMI 40.5
--- NOTE | 2020-12-20 11:32 | XR_ITS ---
PROCEDURE: XR LUMBAR SPINE 2-3V CLINICAL INDICATION: fall 2 days ago Pain COMPARISON: No exams were available for comparison FINDINGS: No acute fracture. There is degenerative disc disease at L2-L3 and L5-S1. 7 mm anterolisthesis L5 on S1. Aortic calcification noted. Facet hypertrophic changes L5-S1. Ligamentous calcification noted between the L4 and L5 transverse processes on both sides. Diffuse vascular calcification. Other findings:None. IMPRESSION: Degenerative changes, no acute finding. Dictated by: Anish Candelario MD 12/20/2020 12:21 Anish Candelario MD in [place] 12/20/2020 12:21
--- NOTE | 2020-12-20 11:41 | HMH.EDUTC ---
[facility] – [place] Disposition Clinical Impression: Low back pain Qualifiers: Chronicity: unspecified Back pain laterality: midline Sciatica presence: without sciatica Qualified Code(s): M54.5 - Low back pain Disposition: Home, Self-Care Condition on Discharge: Good Instructions: Low Back Pain, DI for Low Back Pain Additional Instructions: *Ibuprofen oliver 6 hours with meal as needed for pain/inflammation *Not additional anti-inflammatory like motrin, aleve, advil with the above amount of ibuprofen. You can still take Tylenol every 4 hours as needed if you need something else for pain *Ice 20 minutes every 2 hours for the first 48 hours after the initial injury followed by moist heat every 20 minutes 3-4 times a day to affected area *Muscle relaxer every 8 hours as needed for muscle spasms but remember, it WILL cause drowsiness You cannot take it and drive, operate machinery or care for small children. *Keep this area active, no movement leads to more stiffness, However take it easy and avoid heavy lifting pushing or pulling *Follow up with you family doctor if no improvement for further treatment Prescriptions: methocarbamoL [Methocarbamol 500mg Tablet] 500 mg PO BID #10 tab Transmission Status: Received by [id number] Naproxen [Naproxen 375mg Tab] 375 mg PO BID PRN #10 tab PRN Reason: Moderate Pain Transmission Status: Received by [id number] Referrals: Provider,Referral, MD [Primary Care Provider] - As needed Time of Disposition: 12:32 Medical Decision Making - Shashank Inquiry Pt receiving controlled substance: No Shashank was queried for this patient: No Vital Signs: 12/20/20 11:20 Temperature 97.9 F Temperature Source Oral Pulse Rate [Right Brachial] 83 Respiratory Rate 16 Blood Pressure [Right Arm] 129/77 Blood Pressure Mean [Right Arm] 94 Blood Pressure Source [Right Arm] Automatic Cuff Blood Pressure Position [Right Arm] Sitting 02 Sat by Pulse Oximetry 97 Oxygen Delivery Method Room Air - Radiology Data #1 Image(s): L-Spine Image Reviewed: Yes I have reviewed radiologist's interpretation IMPRESSION: Degenerative changes, no acute finding. [facility] [place] HPI - General Stated complaint: ao [id number] fell injured back Time Seen by Provider: 12/20/20 11:41 Mode of Arrival: Ambulatory Source of Information: Patient Limitations: No Limitations Description of Symptoms (Recalled from Triage Doc. by RN): PATIENT C/O LOWER BACK PAIN AFTER SHE FELL AT HOME X 2 DAYS AGO HEENT Symptoms (Recalled from RN notes): No Resp Symptoms (Recalled from RN notes): No Skin Symptoms (Recalled from RN notes): No MS Symptoms (Recalled from RN notes): Yes Functional Status (Recalled from RN notes): WNL - History of Present Illness Provider Complaint: Patient states that she fell a couple of days ago and landed and buttock area and hit her lower back on a rock State that ever since she has been having pain in her lower back area and hurts when she tries to raise up States that she has had previous back problems so she came in to get checked Denies loss of control of bowel or bladder - Related Data Home Medications Medication Instructions Recorded Confirmed Amitriptyline HCl 100 mg PO HS 11/04/20 11/30/20 Atorvastatin Calcium [Lipitor 40mg 40 mg PO HS 11/04/20 11/30/20 Tab] Clopidogrel Bisulfate [Clopidogrel 75 mg PO DAILY 11/04/20 11/30/20 75mg Tab] Gabapentin [Neurontin 800mg Tab] 800 mg PO TID 11/04/20 11/30/20 Glimepiride [Amaryl] 2 mg PO DAILY 11/04/20 11/30/20 Metformin HCl [Glucophage 500mg 500 mg PO BID 11/04/20 11/30/20 Tablet] Metoprolol Succinate [Metoprolol 25 mg PO DAILY 11/04/20 11/30/20 Succinate 25mg Tablet*] Naproxen [Naproxen 375mg Tab] 375 mg PO BIDP PRN 11/04/20 11/30/20 Ropinirole HCl 2 mg PO HS 11/04/20 11/30/20 Sertraline HCl 100 mg PO DAILY 11/04/20 11/30/20 lisinopriL [Lisinopril] 5 mg PO DAILY 11/04/20 11/30/20 Previous Rx's Medication Instructions Recor
[2020-12-20 12:49] VITALS: BP 129/77; PULSE 83; RESP 16; TEMP 36.6; O2SAT 97
== END 2020-12-20 12:56 | disposition home or self-care (01) ==
PROVIDERS: Emergency Provider Nurse Practitioner
DX: M54.5 Low back pain (principal); W01.0XXA Fall on same level from slipping, tripping and stumbling without subsequent striking against object, initial encounter; Y92.019 Unspecified place in single-family (private) house as the place of occurrence of the external cause; J44.9 Chronic obstructive pulmonary disease, unspecified; I25.10 Atherosclerotic heart disease of native coronary artery without angina pectoris; I10 Essential (primary) hypertension; E78.5 Hyperlipidemia, unspecified; F17.210 Nicotine dependence, cigarettes, uncomplicated; Z88.0 Allergy status to penicillin
CPT/HCPCS: 72100; 99202; G0463

== ENCOUNTER 2021-09-21 13:00 | Outpatient (RCR) | payer OTHER, SELFPAY | END 2021-09-21 13:05 | disposition home or self-care (01) | LOC: PT 13:00 | PROVIDERS: Visit Provider Nurse Practitioner Family | DX: M79.602 Pain in left arm (principal); R53.1 Weakness; L02.414 Cutaneous abscess of left upper limb | CPT/HCPCS: 97163; 97597 ==

== ENCOUNTER 2021-11-04 10:58 | Emergency (ER) | payer OTHER, SELFPAY ==
--- NOTE | 2021-11-04 11:15 | HMH.EDUTC ---
[facility] [place] Disposition Clinical Impression: Thrush Acute bronchitis Qualifiers: Bronchitis organism: unspecified organism Qualified Code(s): J20.9 - Acute bronchitis, unspecified Disposition: Home, Self-Care Condition on Discharge: Good Instructions: Acute Bronchitis, DI for Acute Bronchitis, DI for Thrush, Thrush-Adult Prescriptions: Benzonatate [Benzonatate 100mg cap] 100 mg PO TIDP PRN #30 cap PRN Reason: Cough Transmission Status: Received by [facility] methylPREDNISolone [Medrol] 4 mg PO DIRECTED 6 Days #21 packet Transmission Status: Received by [facility] guaiFENesin [Mucinex 600mg tablet] 1 - 2 tab PO BIDP PRN #30 tab PRN Reason: Congestion Transmission Status: Received by [facility] Nystatin [Nystatin Susp 500,000 Units/5mL Udc] 5 ml PO QID 10 Days #200 ml Transmission Status: Received by [facility] Azithromycin [Z-Cedrick 250mg Tab*] 250 mg PO UD DOSE PK #6 tab Transmission Status: Received by [facility] Referrals: Kevin Mckee [Primary Care Provider] - Time of Disposition: 12:07 Medical Decision Making - Medical Records Medical records reviewed: No: I reviewed the patient's medical records. - Shashank Inquiry Pt receiving controlled substance: No Vital Signs: 11/04/21 11:26 11/04/21 12:33 Temperature 98.1 F 98.1 F Temperature Source Oral Pulse Rate 98 H Pulse Rate [Left] 98 H Respiratory Rate 20 20 Blood Pressure 138/75 Blood Pressure [Right Arm] 138/75 Blood Pressure Mean [Right Arm] 96 02 Sat by Pulse Oximetry 95 [facility] HPI - General Stated complaint: SOB Time Seen by Provider: 11/04/21 11:15 - History of Present Illness Provider Complaint: She statse that for the past 3 days she has had chest congestion and a productive cough. - Related Data Home Medications Medication Instructions Recorded Confirmed Amitriptyline HCl 100 mg PO HS 11/04/20 11/30/20 Atorvastatin Calcium [Lipitor 40mg 40 mg PO HS 11/04/20 11/30/20 Tab] Clopidogrel Bisulfate [Clopidogrel 75 mg PO DAILY 11/04/20 11/30/20 75mg Tab] Gabapentin [Neurontin 800mg Tab] 800 mg PO TID 11/04/20 11/30/20 Glimepiride [Amaryl] 2 mg PO DAILY 11/04/20 11/30/20 Metformin HCl [Glucophage 500mg 500 mg PO BID 11/04/20 11/30/20 Tablet] Metoprolol Succinate [Metoprolol 25 mg PO DAILY 11/04/20 11/30/20 Succinate 25mg Tablet*] Naproxen [Naproxen 375mg Tab] 375 mg PO BIDP PRN 11/04/20 11/30/20 Ropinirole HCl 2 mg PO HS 11/04/20 11/30/20 Sertraline HCl 100 mg PO DAILY 11/04/20 11/30/20 lisinopriL [Lisinopril] 5 mg PO DAILY 11/04/20 11/30/20 Previous Rx's Medication Instructions Recorded Hydrocod/Acet 5/325 mg [Leola 1 tab PO QIDP PRN #20 tab 11/04/20 5/325mg tablet] Fluconazole [Diflucan 150mg tab] 150 mg PO ONCE #1 tab 12/15/20 Naproxen [Naproxen 375mg Tab] 375 mg PO BID PRN #10 tab 12/20/20 methocarbamoL [Methocarbamol 500mg 500 mg PO BID #10 tab 12/20/20 Tablet] Azithromycin [Z-Cedrick 250mg Tab*] 250 mg PO UD DOSE PK #6 tab 11/04/21 Benzonatate [Benzonatate 100mg 100 mg PO TIDP PRN #30 cap 11/04/21 cap] Nystatin [Nystatin Susp 500,000 5 ml PO QID 10 Days #200 ml 11/04/21 Units/5mL Udc] guaiFENesin [Mucinex 600mg tablet] 1 - 2 tab PO BIDP PRN #30 tab 11/04/21 methylPREDNISolone [Medrol] 4 mg PO DIRECTED 6 Days #21 11/04/21 packet Allergies Allergy/AdvReac Type Severity Reaction Status Date / Time Penicillins Allergy Verified 11/04/21 11:31 Sulfa (Sulfonamide Allergy Verified 11/04/21 11:31 Antibiotics) [facility] History - Hepatitis A Screen Attestation statement:: This patient has been screened for Hepatitis A risk factors. I have reviewed the patient's past medical history: Yes Medical History: Reports:: Atherosclerotic Heart Disease, Congestive Heart Failure, Chronic Obstructive Pulmonary Disease (COPD), Coronary Artery Disease, Cerebrovascular Accident, Diabetes Mellitus Type 1, Diabetes Mellit
--- NOTE | 2021-11-04 11:22 | XR_ITS ---
FINAL REPORT CLINICAL HISTORY: sob FINDINGS: Two views of the chest were obtained. The heart size and pulmonary vascularity are within normal limits. The mediastinum is normal. There is a mild left base opacity, favor atelectasis or pneumonia. There is no pneumothorax. The bony thorax is intact. IMPRESSION: Mild left base opacity, favor atelectasis or pneumonia. Reviewed, Interpreted and Dictated by Temo Chavarria III, MD Transcribed by Jessica Domingo Authenticated and . [facility]
[2021-11-04 11:26] VITALS: BP 138/75; PULSE 98; RESP 20; TEMP 36.7; O2SAT 95; BMI 36.9
[2021-11-04 12:33] VITALS: BP 138/75; PULSE 98; RESP 20; TEMP 36.7
== END 2021-11-04 12:33 | disposition home or self-care (01) ==
PROVIDERS: Emergency Provider Nurse Practitioner Family; PCP Pediatrics
DX: J20.9 Acute bronchitis, unspecified (principal); J44.0 Chronic obstructive pulmonary disease with (acute) lower respiratory infection; B37.9 Candidiasis, unspecified; F17.210 Nicotine dependence, cigarettes, uncomplicated; I25.10 Atherosclerotic heart disease of native coronary artery without angina pectoris; I10 Essential (primary) hypertension; E11.9 Type 2 diabetes mellitus without complications; Z79.84 Long term (current) use of oral hypoglycemic drugs
CPT/HCPCS: 71046; 99212; G0463